=== PATIENT | male | born 1995 | race Hispanic/Latino ===

== ENCOUNTER 2019-06-15 22:18 | Emergency (ER) | payer OTHER | END 2019-06-15 23:13 | disposition home or self-care (01) | LOC: ERS 22:18 | DX: S40.862A Insect bite (nonvenomous) of left upper arm, initial encounter (principal); F41.9 Anxiety disorder, unspecified; F17.210 Nicotine dependence, cigarettes, uncomplicated; W57.XXXA Bitten or stung by nonvenomous insect and other nonvenomous arthropods, initial encounter | CPT/HCPCS: 99281 ==

== ENCOUNTER 2020-01-09 02:57 | Emergency (ER) | payer OTHER, SELFPAY ==
[2020-01-09] MEDS ORDERED: Ondansetron PF 4 MG/2 ML Vial ONE (03:01)
[2020-01-09] MEDS ORDERED: Morphine 4 MG/ML VIAL ONE (03:01)
[2020-01-09] MEDS ORDERED: Lorazepam 2 MG/ML VIAL ONE (03:02)
[2020-01-09] MEDS ORDERED: Boostrix 0.5 ML (Tdap) VIAL ONE (03:05)
[2020-01-09 03:12] LABS: #Basophils 0.1 thou/uL (0.0-0.2); #Eosinphils 0.1 thou/uL (0.0-0.7); #Lymphocytes 3.6 thou/uL (1.20-3.40); #Neutrophils 8.2 thou/uL (1.40-6.50); %Basophils 0.6 % (0.0-1.0); %Eosinophils 0.7 % (0.0-10.0); %Lymphocytes 27.8 % (21.0-51.0); %Monocytes 7.7 % (0.0-10.0); %Neutrophils 63.2 % (42.0-75.0); Hemoglobin 14.6 g/dL (14.0-18.0); Mean Corpuscular HGB CONC 34.4 g/dL (32.0-36.0); Mean Corpuscular Volume 92.9 fL (78.0-98.0); Mean Platelet Volume 6.2 fL (7.4-10.4); Platelet Count 406 thou/uL (130-400); RBC Distribution Width 11.8 % (11.5-14.5); Red Blood Cell (RBC) Count 4.57 mill/uL (4.70-6.10)
[2020-01-09 03:21] LABS: INR-International Normal Ratio 1.1; PTT 33.2 sec (22.9-36.1)
[2020-01-09] MEDS ORDERED: Lidocaine 1% w/Epinephrine 1:100K 20 ML VIAL ONE (03:25)
[2020-01-09 03:27] LABS: ALT (SGPT) 21 U/L (8-55); AST (SGOT) 19 U/L (5-34); Albumin 4.1 g/dL (3.5-5.0); Alkaline Phosphatase 121 U/L (40-110); Anion Gap 12 mmol/L (10-20); BUN (Urea Nitrogen) 15 mg/dL (8.9-20.6); Bilirubin, Total 0.6 mg/dL (0.2-1.2); Calc. Creatinine Clearance 0 mL/min (70-130); Calcium 9.3 mg/dL (7.8-10.44); Carbon Dioxide 28 mmol/L (22-29); Chloride 103 mmol/L (98-107); Estimated GFR-MDRD Greater than 90; Globulin 2.9 g/dL (2.4-3.5); Glucose 106 mg/dL (70-105); Potassium 3.2 mmol/L (3.5-5.1); Sodium 140 mmol/L (136-145)
[2020-01-09 03:53] LABS: Acetaminophen Less than 6.0 mcg/mL (10.0-30.0); Alcohol Less than 10 mg/dL (Less than 10); Salicylate Less than 8.0 mg/dL (15.0-30.0)
[2020-01-09] MEDS ORDERED: Bacitracin 1 PK ONE (04:24)
--- NOTE | 2020-01-09 07:34 | RAD ---
Exam:3 views right hand HISTORY: Pain. Trauma. COMPARISON: None FINDINGS: Limited evaluation of the second through fourth digit due to persistent flexion. No obvious fractures. Joint spaces appear to be preserved. IMPRESSION: Imaging evaluation due to persistent flexion. Correlate clinically. Additional imaging as warranted.
== END 2020-01-09 04:45 | disposition home or self-care (01) ==
LOC: ERS 02:57
DX: S61.411A Laceration without foreign body of right hand, initial encounter (principal); F41.9 Anxiety disorder, unspecified; F17.210 Nicotine dependence, cigarettes, uncomplicated; W01.0XXA Fall on same level from slipping, tripping and stumbling without subsequent striking against object, initial encounter
CPT/HCPCS: 12001; 36415; 80053; 80307; 85025; 85610; 85730; 86850; 86900; 86901; 90471; 90715; 96374; 96375; J2060; J2270; J2405